=== PATIENT | male | born 1935 | race Caucasian/White ===

== ENCOUNTER 2017-12-07 10:14 | Inpatient (IN) | payer MEDICARE, BC ==
[~2017-12-07] VITALS: Ht 175.3 cm; Wt 74.4 kg
[~2017-12-07 10:14] MED LIST: BISO1TAB39 PO; NOR5T PO
[2017-12-07 10:44] LABS: BASOPHILS % (AUTO) 0.4 % (0-1); EOSINOPHILS # (AUTO) 0.2 X10'3 (0-0.9); EOSINOPHILS % (AUTO) 3.9 % (0-6); HEMATOCRIT 43.1 % (42.0-52.0); HEMOGLOBIN 14.9 g/dl (14.0-17.9); LYMPHOCYTES # (AUTO) 1.5 X10'3 (1.1-4.8); LYMPHOCYTES % (AUTO) 30.9 % (21-51); MEAN CORPUSCULAR HEMOGLOBIN 30.4 PG (27.0-31.0); MEAN CORPUSCULAR HGB CONC 34.6 % (33.0-36.5); MEAN CORPUSCULAR VOLUME 87.8 FL (78-98); MEAN PLATELET VOLUME 8.4 FL (7.4-10.4); MONOCYTES # (AUTO) 0.7 X10'3 (0-0.9); MONOCYTES % (AUTO) 14.6 % (2-12); NEUTROPHILS # (AUTO) 2.5 X10'3 (1.8-7.7); NEUTROPHILS % (AUTO) 50.2 % (42-75); PLATELET COUNT 194 X10'3 (140-440); RED BLOOD COUNT 4.91 X10'6 (4.70-6.10); RED CELL DISTRIBUTION WIDTH 14.1 % (11.5-14.5); WHITE BLOOD COUNT 4.9 X10'3 (4.5-11.0)
[2017-12-07 10:48] LABS: PARTIAL THROMBOPLASTIN TIME 25 SECONDS (22-32); PROTHROMBIN TIME 10.5 SECONDS (9.0-12.0)
[2017-12-07] MEDS ORDERED: NIA500ERT PO (10:48)
[2017-12-07] MEDS ORDERED: DIPH-718 PO (10:48)
[2017-12-07] MEDS ORDERED: UBID100C16 PO (10:48)
[2017-12-07] MEDS ORDERED: HYDR12.5 PO (10:48)
[2017-12-07] MEDS ORDERED: NAPR220T67 PO (10:48)
[2017-12-07] MEDS ORDERED: POTA99TA25 PO (10:48)
[2017-12-07] MEDS ORDERED: MELA3TAB PO (10:52)
[2017-12-07 10:53] LABS: ALANINE AMINOTRANSFERASE 25 U/L (12-78); ALBUMIN 3.7 G/DL (3.4-5.0); ALBUMIN/GLOBULIN RATIO 1.3 (1.1-1.5); ALKALINE PHOSPHATASE 54 IU/L (46-116); ANION GAP 10 (8-16); ASPARTATE AMINO TRANSFERASE 30 U/L (10-37); BILIRUBIN,TOTAL 0.7 MG/DL (0.1-1.0); BLOOD UREA NITROGEN 18 MG/DL (7-18); BUN/CREATININE RATIO 21.2 (5.4-32.0); CALCIUM 8.8 MG/DL (8.5-10.1); CHLORIDE 106 MMOL/L (99-107); CREATININE 0.85 MG/DL (0.60-1.10); GLUCOSE 97 MG/DL (70-104); POTASSIUM 3.8 MMOL/L (3.5-5.1); SODIUM 143 MMOL/L (135-145); TOTAL CARBON DIOXIDE 26.8 MMOL/L (24-32); TOTAL PROTEIN 6.6 G/DL (6.4-8.2); eGFR 87 ML/MIN
[2017-12-07] MEDS ORDERED: aspirin 325mg tablet PO ONE (11:20)
[2017-12-07] MEDS ORDERED: enoxaparin 100mg/ml syringe SUBCUT ONE (13:25)
[2017-12-07] MEDS ORDERED: ondansetron/PF 4mg/2ml inj IV PRN (14:15)
[2017-12-07] MEDS ORDERED: nitroGLYCERIN 0.4mg SUBLingual tab SL PRN ×2 (14:15→17:10)
[2017-12-07] MEDS ORDERED: morphine 2 MG/ML inj. syringe IV PRN ×2 (14:15)
[2017-12-07] MEDS ORDERED: acetaminophen 325mg tablet PO PRN (14:15)
[2017-12-07] MEDS ORDERED: mag hydrox/Alum hydrox/simeth 30ml oral suspension PO PRN (14:15)
[2017-12-07] MEDS ORDERED: magnesium hydroxide 30ml (MOM) UD suspension PO PRN (14:15)
[2017-12-07 15:03] VITALS: BP 171/83
[2017-12-07 17:00] VITALS: BP 181/77
[2017-12-07] MEDS ORDERED: regadenoson 0.4mg/5ml syringe IV ONE (17:10)
[2017-12-07] MEDS ORDERED: CAFFEINE CITRATE 60 MG/3 ML injection vial IV PRN (17:10)
[2017-12-07] MEDS ORDERED: metoprolol tartrate 1mg/ml inj IV PRN (17:10)
[2017-12-07] MEDS ORDERED: Melatonin 3mg tablet PO SCH (21:00)
[2017-12-07 22:00] VITALS: BP 140/67
[2017-12-08] VITALS (10 sets, daily range): BP systolic 141–207; BP diastolic 54–86
[2017-12-08 06:53] LABS: CHOL/HDL RATIO 4.7 (0.00-4.99); CHOLESTEROL 173 MG/DL (0-200); HDL CHOLESTEROL 37 MG/DL (35-60); LDL CHOLESTEROL 120 MG/DL (50-100); TRIGLYCERIDES 105 MG/DL (20-135)
[2017-12-08] MEDS ORDERED: amLODIPine 5mg tablet PO SCH (08:00)
[2017-12-08] MEDS ORDERED: HYDROchlorothiazide 12.5mg capsule PO SCH (08:00)
[2017-12-08] MEDS ORDERED: aspirin 81mg tablet.DR PO SCH (08:00)
[2017-12-08] MEDS ORDERED: non-formulary drug (Ubidecarenone (Coq-10) 200 MG) PO SCH (08:00)
[2017-12-08] MEDS ORDERED: niacin 500mg ER (Niaspan) tablet PO SCH (08:00)
[2017-12-08] MEDS ORDERED: CAFFEINE CITRATE 60 MG/3 ML injection vial IV ONE (09:15)
[2017-12-08] MEDS ORDERED: regadenoson 0.4mg/5ml syringe IV ONE (09:15)
[2017-12-08] MEDS ORDERED: metoprolol tartrate 1mg/ml inj IV ONE (09:27)
[2017-12-08] MEDS ORDERED: ASPI-1071 PO (14:53)
[2017-12-08] MEDS ORDERED: LORA10TA7 PO (14:53)
== END 2017-12-08 15:20 | disposition home or self-care (01) | DRG 313 ==
LOC: ER 10:15 → ED HOLD 14:12 → ORTHO 4S 15:00
PROVIDERS: ADMIT Internal Medicine; ATTEND Family Medicine
PROC: 4A02XM4 Measurement of Cardiac Total Activity, External Approach (ICD-10-PCS; principal; 2017-12-08)
PROC: 3E033HZ Introduction of Radioactive Substance into Peripheral Vein, Percutaneous Approach (ICD-10-PCS; 2017-12-08)
DX: R07.89 Other chest pain (principal); I49.9 Cardiac arrhythmia, unspecified; R74.8 Abnormal levels of other serum enzymes; I10 Essential (primary) hypertension; E78.5 Hyperlipidemia, unspecified; T44.4X5A Adverse effect of predominantly alpha-adrenoreceptor agonists, initial encounter; Z23 Encounter for immunization; Z79.899 Other long term (current) drug therapy; Y92.9 Unspecified place or not applicable
CPT/HCPCS: 36415; 71045; 78452; 80053; 80061; 84443; 84484; 85025; 85610; 85730; 87070; 93005; 93017; 93306; 99285; A9500; J1650; J3490; Q2037

== ENCOUNTER 2018-10-24 05:21 | Observation (INO) | payer MEDICARE, BC ==
[~2018-10-24] VITALS: Ht 175.3 cm; Wt 71.8 kg
[2018-10-24] VITALS (18 sets, daily range): BP systolic 110–141; BP diastolic 51–67
[~2018-10-24 05:21] MED LIST changes: +ASPI-1071 PO; -BISO1TAB39 PO; +HYDR12.5 PO; +LORA10TA7 PO; +MELA3TAB64 PO; +NAPR220T67 PO; +NIA500ERT PO; +POTA99TA25 PO; +UBID100C16 PO
[2018-10-24] MEDS ORDERED: aspirin 81mg tab.chew PO ONE (05:25)
[2018-10-24] MEDS ORDERED: etomidate 2mg/ml inj. IV ONE (05:50)
[2018-10-24 05:56] LABS: BASOPHILS # (AUTO) 0.1 X10'3 (0-0.2); HEMOGLOBIN 15.2 g/dl (14.0-17.9); MONOCYTES # (AUTO) 0.8 X10'3 (0-0.9); PLATELET COUNT 189 X10'3 (140-440)
[2018-10-24 05:57] LABS: EOSINOPHILS # (AUTO) 0.2 X10'3 (0-0.9); EOSINOPHILS % (AUTO) 3.4 % (0-6); HEMATOCRIT 45.8 % (42.0-52.0); LYMPHOCYTES # (AUTO) 3.7 X10'3 (1.1-4.8); LYMPHOCYTES % (AUTO) 52.7 % (21-51); MEAN CORPUSCULAR HEMOGLOBIN 30.3 PG (27.0-31.0); MEAN CORPUSCULAR HGB CONC 33.3 g/dL (33.0-36.5); MEAN PLATELET VOLUME 8.4 FL (7.4-10.4); MONOCYTES % (AUTO) 10.9 % (2-12); NEUTROPHILS # (AUTO) 2.3 X10'3 (1.8-7.7); RED BLOOD COUNT 5.03 X10'6 (4.70-6.10); WHITE BLOOD COUNT 7.1 X10'3 (4.5-11.0)
--- NOTE | 2018-10-24 06:05 | NUR ---
100 JOULES SHOCK GIVEN
[2018-10-24 06:10] LABS: ALANINE AMINOTRANSFERASE 29 U/L (12-78); ALBUMIN 3.9 G/DL (3.4-5.0); ALBUMIN/GLOBULIN RATIO 1.3 (1.1-1.5); ALKALINE PHOSPHATASE 45 IU/L (46-116); ANION GAP 11 (8-16); ASPARTATE AMINO TRANSFERASE 23 U/L (10-37); BLOOD UREA NITROGEN 26 MG/DL (7-18); BUN/CREATININE RATIO 30.2 (5.4-32.0); CALCIUM 9.2 MG/DL (8.5-10.1); CHLORIDE 105 MMOL/L (99-107); CREATININE 0.86 MG/DL (0.60-1.10); GLUCOSE 115 MG/DL (70-104); POTASSIUM 3.7 MMOL/L (3.5-5.1); SODIUM 142 MMOL/L (135-145); TOTAL CARBON DIOXIDE 26.2 MMOL/L (24-32); eGFR 85 ML/MIN
[2018-10-24 06:12] LABS: PARTIAL THROMBOPLASTIN TIME 26 SECONDS (22-32)
[2018-10-24 06:28] LABS: MAGNESIUM 1.9 MG/DL (1.5-2.4)
[2018-10-24 07:14] LABS: PLATELET ESTIMATE NORMAL
[2018-10-24 07:15] LABS: ANISOCYTOSIS 1+; BURR CELLS 1+
[2018-10-24] MEDS ORDERED: aminophylline 250mg/10ml inj. IV PRN (07:15)
[2018-10-24] MEDS ORDERED: nitroGLYCERIN 0.4mg SUBLingual tab SL PRN (07:15)
[2018-10-24] MEDS ORDERED: magnesium hydroxide 30ml (MOM) UD suspension PO PRN (07:15)
[2018-10-24] MEDS ORDERED: morphine 2 MG/ML inj. syringe IV PRN ×2 (07:15)
[2018-10-24] MEDS ORDERED: mag hydrox/Alum hydrox/simeth 30ml oral suspension PO PRN (07:15)
[2018-10-24] MEDS ORDERED: HYDROcodone/acetaminophen 5mg/325mg tablet PO PRN (07:15)
[2018-10-24] MEDS ORDERED: acetaminophen 325mg tablet PO PRN ×2 (07:15)
[2018-10-24] MEDS ORDERED: metoprolol tartrate 1mg/ml inj IV PRN (07:15)
[2018-10-24] MEDS ORDERED: ondansetron/PF 4mg/2ml inj IV PRN (07:15)
[2018-10-24] MEDS ORDERED: regadenoson 0.4mg/5ml syringe IV ONE (07:15)
[2018-10-24] MEDS ORDERED: CHOL20002 PO (07:18)
[2018-10-24] MEDS ORDERED: LISI10TA4 PO (07:18)
[2018-10-24] MEDS ORDERED: MULT-687 PO (07:18)
[2018-10-24] MEDS ORDERED: LORA-660 PO (07:22)
[2018-10-24] MEDS ORDERED: ASPI-1053 PO (07:22)
[2018-10-24] MEDS ORDERED: apixaban 5mg tablet PO SCH (08:00)
[2018-10-24] MEDS ORDERED: naproxen sodium 220mg tablet PO SCH (10:50)
--- NOTE | 2018-10-24 12:57 | NUR ---
PAGER ID: [phone] MESSAGE: [phone] Gregorio Shelton can we take him off npo? JUAN ANTONIO Ying Ext [phone]
[2018-10-24] MEDS ORDERED: midazolam 2 mg/2 ml injection ONE (14:13)
[2018-10-24] MEDS ORDERED: fentaNYL/PF 50MCG/1 ML 2ML syringe ONE (14:13)
[2018-10-24] MEDS ORDERED: nitroGLYCERIN-Tridil 50MG/D5W 250 ML IV ONE (14:13)
[2018-10-24] MEDS ORDERED: LIDOcaine 1% (10mg/ml)w/preservative injection 20ml MDV ONE (14:14)
[2018-10-24] MEDS ORDERED: iohexol 350 MG/1 ML 200ml bottle ONE (14:14)
[2018-10-24] MEDS ORDERED: heparin 1,000unit/ml 10ml vial 10 ML ONE (14:14)
[2018-10-24] MEDS ORDERED: iohexol 350 MG/ML 50ML vial IV ONE (14:14)
[2018-10-24] MEDS: normal saline 1000ml 1,000 ML IV SCH ×2 (14:43→18:06)
[2018-10-24] MEDS ORDERED: verapamil 2.5 mg/ml inj IV ONE (14:47)
[2018-10-24] MEDS ORDERED: heparin 25,000 UNIT/250ml bag 250 ML IV ONE (15:06)
[2018-10-24] MEDS ORDERED: iohexol 350MG/ML 100ml bottle IV ONE (15:25)
[2018-10-24] MEDS ORDERED: ticagrelor 90mg tablet ONE (15:39)
[2018-10-24] MEDS ORDERED: heparin 25,000 UNIT/250ml bag 250 ML IV SCH (16:20)
[2018-10-24] MEDS ORDERED: heparin 10,000 units/1 ML INJ IV PRN (16:20)
[2018-10-24] MEDS ORDERED: heparin 10,000 units/1 ML INJ IV ONE (16:20)
[2018-10-24] MEDS ORDERED: ticagrelor 90mg tablet PO ONE (16:30)
[2018-10-24] MEDS ORDERED: OXAZEpam 15mg capsule PO PRN (16:30)
[2018-10-24] MEDS ORDERED: HYDROcodone/acetaminophen 10/325mg tab PO PRN ×2 (16:30)
[2018-10-24] MEDS ORDERED: cyclobenzaprine 10mg tablet PO PRN (16:30)
[2018-10-24] MEDS ORDERED: proCHLORperazine 10 MG/2 ml inj IV PRN (16:30)
--- NOTE | 2018-10-24 17:23 | NUR ---
PAGER ID: [phone] MESSAGE: [phone] Gregorio Branch heart rate slightly bradycardic in the low 50's. Asymptomatic though. JUAN ANTONIO Ying Ext [phone]
--- NOTE | 2018-10-24 18:22 | NUR ---
Problems reprioritized. Patient report given, questions answered & plan of care reviewed with Sirena.
[2018-10-24] MEDS: ticagrelor 90mg tablet PO SCH (20:00)
[2018-10-24] MEDS: docusate sod 100mg capsule PO SCH (20:35)
--- NOTE | 2018-10-24 20:46 | NUR ---
Patient continues to bleed from cardiac catheterization site. Called [facility] answering service and left a message to see if he would like me to give him his Brilinta and what he would like me to do with the pressure dressing. I have only taken three mLs out of the pressure dressing, and the site continues to bleed. I put 2 mLs of air back into the pressure dressing with Alma Charge nurse.
--- NOTE | 2018-10-24 20:50 | NUR ---
I spoke with Dr. Mayen just now, he would like to hold the Brdelmi tonight due to the patient still bleeding at his catheterization site located on his right radial artery. He would also like the dayshift nurse to CALL HIM BEFORE GIVING HIM ANY BLOOD THINNERS INCLUDING BRILINTA, LOVENOX, ELIQUIS ECT. NO BLOOD THINNERS BEFORE CALLING SAGRARIO IN THE MORNING ON 10/25
[2018-10-24] MEDS ORDERED: Melatonin 3mg tablet PO SCH (21:00)
--- NOTE | 2018-10-24 23:02 | NUR ---
Hematoma from bleeding of catheterization site. Site is marked, ice applied, pressure dressing in place with [address] Mayen is aware and is ok with the pressure dressing to remain on the patients radial artery as long as pulses are in tact, hand has good color and is warm. Will continue to monitor and release air when appropriate.
[2018-10-25 03:00] VITALS: BP 145/61
[2018-10-25 06:00] VITALS: BP 145/57
[2018-10-25 06:22] LABS: BASOPHILS % (AUTO) 0.8 % (0-1); EOSINOPHILS # (AUTO) 0.1 X10'3 (0-0.9); EOSINOPHILS % (AUTO) 2.1 % (0-6); HEMATOCRIT 36.4 % (42.0-52.0); HEMOGLOBIN 12.5 g/dl (14.0-17.9); LYMPHOCYTES % (AUTO) 23.1 % (21-51); MEAN CORPUSCULAR HEMOGLOBIN 31.2 PG (27.0-31.0); MEAN CORPUSCULAR HGB CONC 34.3 g/dL (33.0-36.5); MEAN CORPUSCULAR VOLUME 90.8 FL (78-98); MEAN PLATELET VOLUME 8.5 FL (7.4-10.4); MONOCYTES # (AUTO) 0.5 X10'3 (0-0.9); MONOCYTES % (AUTO) 11.9 % (2-12); NEUTROPHILS # (AUTO) 2.6 X10'3 (1.8-7.7); NEUTROPHILS % (AUTO) 62.1 % (42-75); PLATELET COUNT 149 X10'3 (140-440); RED BLOOD COUNT 4.01 X10'6 (4.70-6.10); RED CELL DISTRIBUTION WIDTH 13.8 % (11.5-14.5); WHITE BLOOD COUNT 4.3 X10'3 (4.5-11.0)
[2018-10-25 06:32] LABS: ALBUMIN 2.8 G/DL (3.4-5.0); ANION GAP 6 (8-16); BLOOD UREA NITROGEN 16 MG/DL (7-18); BUN/CREATININE RATIO 21.9 (5.4-32.0); CALCIUM 7.7 MG/DL (8.5-10.1); CHLORIDE 111 MMOL/L (99-107); CHOL/HDL RATIO 3.6 (0.00-4.99); CHOLESTEROL 142 MG/DL (0-200); CREATININE 0.73 MG/DL (0.60-1.10); GLUCOSE 88 MG/DL (70-104); HDL CHOLESTEROL 39 MG/DL (35-60); LDL CHOLESTEROL 94 MG/DL (50-100); SODIUM 143 MMOL/L (135-145); TOTAL CARBON DIOXIDE 26.3 MMOL/L (24-32); TRIGLYCERIDES 68 MG/DL (20-135); eGFR > 90 ML/MIN
--- NOTE | 2018-10-25 06:39 | NUR ---
Problems reprioritized. Patient report given, questions answered & plan of care reviewed with JUAN ANTONIO Madera.
--- NOTE | 2018-10-25 07:13 | NUR ---
Patient in room PCU 3009. I have received report from JUAN ANTONIO Pack and had the opportunity to ask questions and assume patient care.
[2018-10-25] MEDS: docusate sod 100mg capsule PO SCH (07:57)
[2018-10-25] MEDS ORDERED: aspirin 81mg tab.chew PO SCH (08:00)
[2018-10-25] MEDS ORDERED: MULTIVITAMIN PO SCH (08:00)
[2018-10-25] MEDS ORDERED: multivitamins, therapeutics tablet PO SCH (08:00)
[2018-10-25] MEDS ORDERED: CHOLECALCIFEROL PO SCH (08:00)
[2018-10-25] MEDS ORDERED: LORATADINE 10 MG PO SCH (08:00)
[2018-10-25] MEDS ORDERED: POTASSIUM GLUCONATE PO SCH (08:00)
[2018-10-25] MEDS ORDERED: lisinopril 10 MG tablet PO SCH (08:00)
[2018-10-25] MEDS: ticagrelor 90mg tablet PO SCH (08:00)
[2018-10-25] MEDS ORDERED: potassium chloride 8mEq ER tablet PO SCH (08:00)
[2018-10-25] MEDS ORDERED: loratadine 10mg tablet PO SCH (08:00)
[2018-10-25] MEDS ORDERED: vitamin D (cholecalciferol) 1,000 unit tablet PO SCH (08:00)
[2018-10-25] MEDS ORDERED: niacin 500mg ER (Niaspan) tablet PO SCH (08:00)
[2018-10-25] MEDS ORDERED: HYDROchlorothiazide 12.5mg capsule PO SCH (08:00)
[2018-10-25] MEDS ORDERED: atorvastatin 20mg tablet PO SCH (08:00)
[2018-10-25] MEDS ORDERED: non-formulary drug (Ubidecarenone (Coq-10) 200 MG) PO SCH (08:00)
[2018-10-25 08:03] VITALS: BP 153/68
--- NOTE | 2018-10-25 08:04 | NUR ---
attempted to aspirate air from right radial artery approach, no air aspirated, none was inflated. pt has good radial pulses. bruising marked.
[2018-10-25] MEDS ORDERED: TICA90TA PO (08:43)
[2018-10-25] MEDS ORDERED: ATOR20TA66 PO (08:43)
[2018-10-25] MEDS ORDERED: naproxen sodium 220mg tablet PO PRN (08:46)
[2018-10-25 11:00] VITALS: BP 174/73
[2018-10-25] MEDS ORDERED: APIX5TAB3 PO (12:19)
[2018-10-25] MEDS ORDERED: SOTA80TA PO (12:20)
[2018-10-25] MEDS ORDERED: sotalol 80mg tablet PO SCH (12:25)
[2018-10-25 14:22] VITALS: BP 137/71
--- NOTE | 2018-10-25 15:15 | NUR ---
pt discharged in stable condition. all belongings sent with pt. piv and tele dc'd. canula intact. discharge instructions given to pt and family. new meds called to [facility]. pt taken to private vehicle in wheelchair.
== END 2018-10-25 15:13 | disposition home or self-care (01) ==
LOC: ER 05:23 → PCU 3S 10:13
PROVIDERS: ADMIT Internal Medicine; ATTEND Internal Medicine
DX: S26.90XA Unspecified injury of heart, unspecified with or without hemopericardium, initial encounter (principal); I25.10 Atherosclerotic heart disease of native coronary artery without angina pectoris; I48.0 Paroxysmal atrial fibrillation; I10 Essential (primary) hypertension; E78.5 Hyperlipidemia, unspecified; Z79.82 Long term (current) use of aspirin; Y93.89 Activity, other specified; Y92.89 Other specified places as the place of occurrence of the external cause
CPT/HCPCS: 36415; 71045; 78452; 80048; 80053; 80061; 83735; 83880; 84443; 84484; 85025; 85347; 85610; 85730; 87081; 93005; 93017; 93306; 93458; 99291; A9500; C1725; C1769; C1874; C1894; C9600; C9601; G0378; J1644; J2001; J2250; J2785; J3010; J7030; Q9967; 99152; 99153; 99284; A4620; A6258; J3490

== ENCOUNTER 2018-10-26 01:01 | Emergency (ER) | payer MEDICARE, BC ==
[~2018-10-26] VITALS: Ht 175.3 cm; Wt 68.2 kg
[~2018-10-26 01:01] MED LIST changes: +APIX5TAB3 PO; -ASPI-1071 PO; +ATOR20TA66 PO; +CHOL20002 PO; +LISI10TA4 PO; +LORA-660 PO; -LORA10TA7 PO; +MULT-687 PO; -NOR5T PO; +SOTA80TA PO; +TICA90TA PO
--- NOTE | 2018-10-26 01:12 | NUR ---
TRIED TO CONTACT PTS SON PER REQUEST. LEFT MESSAGE TO CONTACT US.
[2018-10-26 01:39] LABS: ALANINE AMINOTRANSFERASE 28 U/L (12-78); ALBUMIN 3.3 G/DL (3.4-5.0); ALBUMIN/GLOBULIN RATIO 1.2 (1.1-1.5); ALKALINE PHOSPHATASE 43 IU/L (46-116); ANION GAP 10 (8-16); ASPARTATE AMINO TRANSFERASE 30 U/L (10-37); BILIRUBIN,TOTAL 0.6 MG/DL (0.1-1.0); BLOOD UREA NITROGEN 20 MG/DL (7-18); CALCIUM 8.4 MG/DL (8.5-10.1); CHLORIDE 108 MMOL/L (99-107); GLUCOSE 98 MG/DL (70-104); POTASSIUM 3.8 MMOL/L (3.5-5.1); SODIUM 142 MMOL/L (135-145); TOTAL PROTEIN 6.1 G/DL (6.4-8.2); eGFR > 90 ML/MIN
[2018-10-26 01:44] LABS: PARTIAL THROMBOPLASTIN TIME 30 SECONDS (22-32)
[2018-10-26 01:49] LABS: BASOPHILS % (AUTO) 0.8 % (0-1); EOSINOPHILS # (AUTO) 0.2 X10'3 (0-0.9); EOSINOPHILS % (AUTO) 3.3 % (0-6); HEMATOCRIT 40.6 % (42.0-52.0); LYMPHOCYTES # (AUTO) 1.4 X10'3 (1.1-4.8); LYMPHOCYTES % (AUTO) 22.9 % (21-51); MEAN CORPUSCULAR HEMOGLOBIN 30.7 PG (27.0-31.0); MEAN CORPUSCULAR HGB CONC 34.4 g/dL (33.0-36.5); MEAN CORPUSCULAR VOLUME 89.1 FL (78-98); MEAN PLATELET VOLUME 8.5 FL (7.4-10.4); MONOCYTES # (AUTO) 0.8 X10'3 (0-0.9); MONOCYTES % (AUTO) 13.1 % (2-12); NEUTROPHILS # (AUTO) 3.6 X10'3 (1.8-7.7); NEUTROPHILS % (AUTO) 59.9 % (42-75); PLATELET COUNT 172 X10'3 (140-440); RED BLOOD COUNT 4.55 X10'6 (4.70-6.10); RED CELL DISTRIBUTION WIDTH 13.5 % (11.5-14.5)
[2018-10-26] MEDS ORDERED: iohexol 350MG/ML 100ml bottle IV ONE (04:32)
[2018-10-26] MEDS ORDERED: iohexol 350 MG/ML 50ML vial IV ONE (05:09)
[2018-10-26 06:08] VITALS: BP 152/75
== END 2018-10-26 06:28 | disposition home or self-care (01) ==
LOC: ER 01:02
DX: I25.10 Atherosclerotic heart disease of native coronary artery without angina pectoris (principal); R06.02 Shortness of breath; I10 Essential (primary) hypertension; Z95.9 Presence of cardiac and vascular implant and graft, unspecified; Z79.899 Other long term (current) drug therapy; Z79.82 Long term (current) use of aspirin
CPT/HCPCS: 36415; 71045; 71275; 80053; 84484; 85025; 85610; 85730; 93005; 99284; Q9967

== ENCOUNTER 2018-11-01 08:09 | Emergency (ER) | payer MEDICARE, BC ==
[~2018-11-01] VITALS: Ht 175.3 cm; Wt 68.2 kg
[2018-11-01 08:40] LABS: HEMOGLOBIN 14.8 g/dl (14.0-17.9); MEAN PLATELET VOLUME 8.1 FL (7.4-10.4)
[2018-11-01 08:42] LABS: BASOPHILS % (AUTO) 0.7 % (0-1); EOSINOPHILS # (AUTO) 0.2 X10'3 (0-0.9); EOSINOPHILS % (AUTO) 2.7 % (0-6); HEMATOCRIT 43.5 % (42.0-52.0); LYMPHOCYTES # (AUTO) 1.3 X10'3 (1.1-4.8); LYMPHOCYTES % (AUTO) 21.4 % (21-51); MEAN CORPUSCULAR HEMOGLOBIN 30.4 PG (27.0-31.0); MEAN CORPUSCULAR HGB CONC 33.9 g/dL (33.0-36.5); MEAN CORPUSCULAR VOLUME 89.7 FL (78-98); MONOCYTES # (AUTO) 0.6 X10'3 (0-0.9); MONOCYTES % (AUTO) 10.1 % (2-12); NEUTROPHILS # (AUTO) 4.1 X10'3 (1.8-7.7); NEUTROPHILS % (AUTO) 65.1 % (42-75); PLATELET COUNT 204 X10'3 (140-440); RED BLOOD COUNT 4.85 X10'6 (4.70-6.10); WHITE BLOOD COUNT 6.3 X10'3 (4.5-11.0)
[2018-11-01 08:55] LABS: PARTIAL THROMBOPLASTIN TIME 29 SECONDS (22-32)
[2018-11-01 08:56] LABS: ALANINE AMINOTRANSFERASE 30 U/L (12-78); ALBUMIN 3.5 G/DL (3.4-5.0); ALBUMIN/GLOBULIN RATIO 1.1 (1.1-1.5); ALKALINE PHOSPHATASE 52 IU/L (46-116); ANION GAP 9 (8-16); ASPARTATE AMINO TRANSFERASE 24 U/L (10-37); BILIRUBIN,TOTAL 0.9 MG/DL (0.1-1.0); BLOOD UREA NITROGEN 15 MG/DL (7-18); BUN/CREATININE RATIO 16.1 (5.4-32.0); CALCIUM 8.6 MG/DL (8.5-10.1); CHLORIDE 108 MMOL/L (99-107); CREATININE 0.93 MG/DL (0.60-1.10); GLUCOSE 99 MG/DL (70-104); POTASSIUM 3.9 MMOL/L (3.5-5.1); SODIUM 143 MMOL/L (135-145); TOTAL CARBON DIOXIDE 26.2 MMOL/L (24-32); TOTAL PROTEIN 6.7 G/DL (6.4-8.2); eGFR 78 ML/MIN
[2018-11-01] MEDS ORDERED: ATOR40TA PO (09:02)
[2018-11-01] MEDS ORDERED: lisinopril 10 MG tablet PO ONE (09:10)
[2018-11-01] MEDS ORDERED: HYDROchlorothiazide 25mg tablet PO ONE (09:10)
[2018-11-01] MEDS ORDERED: sotalol 80mg tablet PO SCH (09:10)
[2018-11-01] MEDS ORDERED: ticagrelor 90mg tablet PO ONE (09:15)
[2018-11-01] MEDS ORDERED: HYDROchlorothiazide 12.5mg capsule PO ONE (09:15)
[2018-11-01] MEDS ORDERED: apixaban 5mg tablet PO ONE (09:15)
[2018-11-01 09:36] VITALS: BP 175/88
[2018-11-01] MEDS ORDERED: ticagrelor 90mg tablet PO SCH (20:00)
[2018-11-01] MEDS ORDERED: apixaban 5mg tablet PO SCH (20:00)
== END 2018-11-01 09:37 | disposition home or self-care (01) ==
LOC: ER 08:10
DX: R06.02 Shortness of breath (principal); R06.00 Dyspnea, unspecified; I25.10 Atherosclerotic heart disease of native coronary artery without angina pectoris; I10 Essential (primary) hypertension; Z98.61 Coronary angioplasty status; Z79.899 Other long term (current) drug therapy
CPT/HCPCS: 36415; 71045; 80053; 84484; 85025; 85610; 85730; 93005; 99284

== ENCOUNTER 2019-04-04 01:52 | Observation (INO) | payer MEDICARE, BC ==
[~2019-04-04] VITALS: Ht 175.3 cm; Wt 70.5 kg
[~2019-04-04 01:52] MED LIST changes: -ATOR20TA66 PO; +ATOR40TA PO
[2019-04-04 02:19] LABS: BASOPHILS % (AUTO) 0.4 % (0-1); EOSINOPHILS # (AUTO) 0.5 X10'3 (0-0.9); EOSINOPHILS % (AUTO) 9.9 % (0-6); HEMATOCRIT 42.3 % (42.0-52.0); HEMOGLOBIN 14.5 g/dl (14.0-17.9); LYMPHOCYTES # (AUTO) 1.9 X10'3 (1.1-4.8); LYMPHOCYTES % (AUTO) 35.6 % (21-51); MEAN CORPUSCULAR HEMOGLOBIN 30.4 PG (27.0-31.0); MEAN CORPUSCULAR HGB CONC 34.3 g/dL (33.0-36.5); MEAN CORPUSCULAR VOLUME 88.9 FL (78-98); MEAN PLATELET VOLUME 8.5 FL (7.4-10.4); MONOCYTES # (AUTO) 0.7 X10'3 (0-0.9); MONOCYTES % (AUTO) 13.3 % (2-12); NEUTROPHILS # (AUTO) 2.2 X10'3 (1.8-7.7); NEUTROPHILS % (AUTO) 40.8 % (42-75); PLATELET COUNT 179 X10'3 (140-440); RED BLOOD COUNT 4.76 X10'6 (4.70-6.10); RED CELL DISTRIBUTION WIDTH 13.9 % (11.5-14.5); WHITE BLOOD COUNT 5.3 X10'3 (4.5-11.0)
[2019-04-04] MEDS ORDERED: nitroGLYCERIN 0.4mg SUBLingual tab SL PRN (02:30)
[2019-04-04 02:31] LABS: PARTIAL THROMBOPLASTIN TIME 29 SECONDS (22-32)
[2019-04-04 02:37] LABS: ALANINE AMINOTRANSFERASE 39 U/L (12-78); ALBUMIN 3.7 G/DL (3.4-5.0); ALBUMIN/GLOBULIN RATIO 1.3 (1.1-1.5); ALKALINE PHOSPHATASE 59 IU/L (46-116); ANION GAP 6 (8-16); ASPARTATE AMINO TRANSFERASE 31 U/L (10-37); BILIRUBIN,TOTAL 0.6 MG/DL (0.1-1.0); BLOOD UREA NITROGEN 18 MG/DL (7-18); BUN/CREATININE RATIO 20.9 (5.4-32.0); CALCIUM 8.9 MG/DL (8.5-10.1); CHLORIDE 107 MMOL/L (99-107); CREATININE 0.86 MG/DL (0.60-1.10); GLUCOSE 91 MG/DL (70-104); POTASSIUM 4.1 MMOL/L (3.5-5.1); SODIUM 142 MMOL/L (135-145); TOTAL CARBON DIOXIDE 29.1 MMOL/L (24-32); TOTAL PROTEIN 6.5 G/DL (6.4-8.2); eGFR 85 ML/MIN
[2019-04-04] MEDS ORDERED: aspirin 81mg tab.chew PO ONE (03:35)
--- NOTE | 2019-04-04 03:38 | NUR ---
Pt resting comfortably. Denies SOB, chest pain or pressure at this time.
--- NOTE | 2019-04-04 03:57 | NUR ---
PT STATED HE WAS TOLD BY DR ZABALA NOT TO TAKE ASPIRIN. PT REFUSES ASPIRIN AT THIS TIME.
[2019-04-04] MEDS ORDERED: SOTA80TA73 PO (06:40)
[2019-04-04] MEDS ORDERED: MELA3TAB64 PO (06:40)
[2019-04-04] MEDS ORDERED: ondansetron/PF 4mg/2ml inj IV PRN (08:00)
[2019-04-04] MEDS ORDERED: morphine 2 MG/ML inj. syringe IV PRN ×2 (08:00)
[2019-04-04] MEDS ORDERED: mag hydrox/Alum hydrox/simeth 30ml oral suspension PO PRN (08:00)
[2019-04-04] MEDS ORDERED: acetaminophen 325mg tablet PO PRN (08:00)
[2019-04-04] MEDS ORDERED: magnesium hydroxide 30ml (MOM) UD suspension PO PRN (08:00)
[2019-04-04] MEDS: hydrALAZINE 20mg/ml inj. IV PRN (10:50)
[2019-04-04] MEDS: normal saline 1000ml 1,000 ML IV SCH ×3 (10:50→20:45)
--- NOTE | 2019-04-04 12:23 | NUR ---
promotional table spacer PAGER ID: [phone] MESSAGE: Keshawn [phone], Jose Carlos. Pt has BP of 186/80 after having PRN hydralazine 1 hr ago. Pt would also like something for a headache. Megan [phone]
[2019-04-04] MEDS: enalaprilat dihydrate 2.5mg/2ml vial IV PRN ×2 (12:55→23:04)
--- NOTE | 2019-04-04 13:33 | NUR ---
PAGER ID: [phone] MESSAGE: [phone], Jose Carlos. Pt's son Kilo would like to talk with you if possible as he is leaving the country tomorrow. Megan [phone]
--- NOTE | 2019-04-04 13:33 | NUR ---
Spoke with pt's family son Kilo who would like to speak with the MD regarding the patient's POC as he will be leaving the country tomorrow. Kevin MD, will continue to monitor. Patient received prn BP medication, and DEGROOT has resolved, will re-check BP in an hour.
--- NOTE | 2019-04-04 14:03 | NUR ---
PAGER ID: [phone] MESSAGE: Keshawn [phone] Carlos. If you have time Pt's son Kilo would like a quick update from you please. Thank you, Megan [phone]
[2019-04-04] MEDS ORDERED: Melatonin 3mg tablet PO PRN (14:30)
[2019-04-04 15:00] VITALS: BP 139/62
--- NOTE | 2019-04-04 16:27 | NUR ---
promotional table spacer PAGER ID: [phone] MESSAGE: Keshawn [phone], Jose Carlos. Can I put in an order for Tylenol for pain? Thanks, Megan [phone]
[2019-04-04] MEDS: acetaminophen 325mg tablet PO PRN ×2 (16:41→23:14)
--- NOTE | 2019-04-04 18:22 | NUR ---
Problems reprioritized. Patient report given, questions answered & plan of care reviewed with Samuel ROMANO.
[2019-04-04 18:30] VITALS: BP 144/66
--- NOTE | 2019-04-04 18:48 | NUR ---
Page Sent promotional table spacer PAGER ID: [phone] MESSAGE: Gregorio Branch [phone] here for chest pain would like something for nasal decongestion. normally uses a saline solution at home. Thank you, Reba [phone]
--- NOTE | 2019-04-04 18:48 | NUR ---
Patient in room PCU 3009. I have received report from Megan Storm RN and had the opportunity to ask questions and assume patient care.
[2019-04-04] MEDS: apixaban 5mg tablet PO SCH (19:42)
[2019-04-04] MEDS: ticagrelor 90mg tablet PO SCH (19:42)
[2019-04-04] MEDS: sotalol 80mg tablet PO SCH (19:43)
[2019-04-04] MEDS: salt irrigation nasal spray 45 ML SPRAY NS PRN ×2 (19:51→23:02)
[2019-04-04 22:30] VITALS: BP 162/83
[2019-04-05] VITALS: BP 135/53
[2019-04-05 02:30] VITALS: BP 136/63
[2019-04-05 05:26] LABS: ALBUMIN 2.8 G/DL (3.4-5.0); ANION GAP 4 (8-16); BLOOD UREA NITROGEN 18 MG/DL (7-18); BUN/CREATININE RATIO 24.3 (5.4-32.0); CALCIUM 8.1 MG/DL (8.5-10.1); CHLORIDE 112 MMOL/L (99-107); CREATININE 0.74 MG/DL (0.60-1.10); GLUCOSE 88 MG/DL (70-104); POTASSIUM 3.9 MMOL/L (3.5-5.1); SODIUM 144 MMOL/L (135-145); TOTAL CARBON DIOXIDE 28.2 MMOL/L (24-32); eGFR > 90 ML/MIN
[2019-04-05 05:33] LABS: BASOPHILS # (AUTO) 0.1 X10'3 (0-0.2); BASOPHILS % (AUTO) 1.1 % (0-1); EOSINOPHILS # (AUTO) 0.5 X10'3 (0-0.9); HEMATOCRIT 35.8 % (42.0-52.0); HEMOGLOBIN 12.4 g/dl (14.0-17.9); LYMPHOCYTES # (AUTO) 1.3 X10'3 (1.1-4.8); LYMPHOCYTES % (AUTO) 28.6 % (21-51); MEAN CORPUSCULAR HEMOGLOBIN 30.7 PG (27.0-31.0); MEAN CORPUSCULAR HGB CONC 34.7 g/dL (33.0-36.5); MEAN CORPUSCULAR VOLUME 88.6 FL (78-98); MEAN PLATELET VOLUME 8.6 FL (7.4-10.4); MONOCYTES # (AUTO) 0.6 X10'3 (0-0.9); NEUTROPHILS # (AUTO) 2.2 X10'3 (1.8-7.7); NEUTROPHILS % (AUTO) 48.3 % (42-75); PLATELET COUNT 146 X10'3 (140-440); RED BLOOD COUNT 4.05 X10'6 (4.70-6.10); RED CELL DISTRIBUTION WIDTH 13.9 % (11.5-14.5); WHITE BLOOD COUNT 4.6 X10'3 (4.5-11.0)
[2019-04-05 06:00] VITALS: BP 160/73
--- NOTE | 2019-04-05 06:00 | NUR ---
Patient in room PCU 3009. I have received report from Samuel ROMANO and had the opportunity to ask questions and assume patient care. Patient is awake and oriented at this time. Unlabored respirations, offers no complaints, will continue to monitor.
--- NOTE | 2019-04-05 06:14 | NUR ---
Problems reprioritized. Patient report given, questions answered & plan of care reviewed with Megan Storm RN.
[2019-04-05] MEDS ORDERED: HYDROchlorothiazide 12.5mg capsule PO SCH (08:00)
[2019-04-05] MEDS ORDERED: niacin 500mg ER (Niaspan) tablet PO SCH (08:00)
[2019-04-05] MEDS ORDERED: POTASSIUM GLUCONATE PO SCH (08:00)
[2019-04-05] MEDS ORDERED: multivitamins, therapeutics tablet PO SCH (08:00)
[2019-04-05] MEDS ORDERED: non-formulary drug (Ubidecarenone (Coq-10) 200 MG) PO SCH (08:00)
[2019-04-05] MEDS ORDERED: vitamin D (cholecalciferol) 1,000 unit tablet PO SCH (08:00)
[2019-04-05] MEDS ORDERED: lisinopril 10 MG tablet PO SCH (08:00)
[2019-04-05] MEDS ORDERED: atorvastatin 20mg tablet PO SCH (08:00)
[2019-04-05] MEDS ORDERED: HYDROchlorothiazide 12.5mg capsule PO ONE (08:05)
--- NOTE | 2019-04-05 08:17 | NUR ---
Spoke with Dionne Brunner GAS OPERATIONS SUPERINTENDENT, instructed to hold the lisinopril ordered for this am as she would be adjusting his dose and time given.
[2019-04-05] MEDS: sotalol 80mg tablet PO SCH (08:18)
[2019-04-05] MEDS: apixaban 5mg tablet PO SCH (08:19)
[2019-04-05] MEDS: ticagrelor 90mg tablet PO SCH (08:19)
[2019-04-05 11:00] VITALS: BP_SYST 187; BP_SYST 188; BP_DIAS 73; BP_DIAS 75
[2019-04-05] MEDS: enalaprilat dihydrate 2.5mg/2ml vial IV PRN (11:01)
--- NOTE | 2019-04-05 12:13 | NUR ---
Paged re : Pt's BP PAGER ID: [phone] MESSAGE: [phone] A : Jose Carlos G : STEPHANIA : Pt's BP is 188/80 after PRN Vasotec. Will give PRN Hydralazine and will inform you of the result. Thanks! Megan/Vale x [phone]
[2019-04-05] MEDS: hydrALAZINE 20mg/ml inj. IV PRN (12:19)
--- NOTE | 2019-04-05 12:48 | NUR ---
Rm [phone], Jose Carlos. Pt needs darted if you can please. Thank you.
--- NOTE | 2019-04-05 13:54 | NUR ---
Paged / Abdifatah. PAGER ID: [phone] MESSAGE: [phone] A Nanda Branch : Pt's BP = 162/68, 80 bpm after 1 hour of receiving Hydralazine 10 mg IV (PRN). Pt denied headache and palpitation, no SOB noted. Pt stated he's fine. Please advice. Thanks! . Megan/Vale
[2019-04-05] MEDS: normal saline 1000ml 1,000 ML IV SCH (13:56)
[2019-04-05 15:00] VITALS: BP 127/53
[2019-04-05 15:18] VITALS: BP 139/69
--- NOTE | 2019-04-05 15:23 | NUR ---
Paged Dr. Gardiner. PAGER ID: [phone] MESSAGE: [phone] A Nanda Branch : Update on pt's BP : 139/69; pt asymptomatic... Megan/Vale x [phone]
[2019-04-05] MEDS ORDERED: HCTZ25T PO (15:35)
[2019-04-05] MEDS ORDERED: LISI-600 PO (15:35)
--- NOTE | 2019-04-05 16:48 | NUR ---
Pt is stable to be discharged per MD; Education and discharged instructions provided to patient - pt verbalized understanding; discharge packet and home meds stored in pharmacy handed to pt. IV access discontinued; tele monitor removed and returned to [employer]. Staff accompanied pt off the unit; accompanied the pt.
--- NOTE | 2019-04-05 17:50 | NUR ---
Patient discharged home with at 1648. Patient reviewed discharged packet before signing, all belongings sent with patient. PIV was removed with cannula intact, telemetry monitoring was discontinued and Rx was given to patient to have filled tomorrow at his pharmacy. Patient was wheeled down by staff and alert and oriented for discharge. Patient left via private vehicle.
[2019-04-05] MEDS ORDERED: lisinopril 20mg tablet PO SCH (21:00)
[2019-04-06] MEDS ORDERED: HYDROchlorothiazide 25mg tablet PO SCH (08:00)
--- NOTE | 2019-04-07 10:10 | NUR ---
Case Management DC follow up: LM/VM asking rtn call if questions/concerns, post DC status
== END 2019-04-05 16:48 | disposition home or self-care (01) ==
LOC: ER 01:53 → ED HOLD 07:56 → PCU 3S 09:50
PROVIDERS: ADMIT Family Medicine; ATTEND Family Medicine
DX: R07.89 Other chest pain (principal); I25.10 Atherosclerotic heart disease of native coronary artery without angina pectoris; I48.91 Unspecified atrial fibrillation; I10 Essential (primary) hypertension; E78.5 Hyperlipidemia, unspecified; Z98.61 Coronary angioplasty status; Z79.01 Long term (current) use of anticoagulants; Z79.899 Other long term (current) drug therapy
CPT/HCPCS: 36415; 71045; 80048; 80053; 84484; 85025; 85610; 85730; 87081; 93005; 96374; 96375; 96376; 99284; G0378; J0360; J7030

== ENCOUNTER 2019-04-08 18:44 | Emergency (ER) | payer MEDICARE, BC ==
[~2019-04-08] VITALS: Ht 175.3 cm; Wt 71.9 kg
[~2019-04-08 18:44] MED LIST changes: +HCTZ25T PO; -HYDR12.5 PO; +LISI-600 PO; -LISI10TA4 PO; -LORA-660 PO; -NAPR220T67 PO; -SOTA80TA PO; +SOTA80TA73 PO
[2019-04-08 19:33] LABS: BASOPHILS % (AUTO) 0.9 % (0-1); EOSINOPHILS # (AUTO) 0.5 X10'3 (0-0.9); EOSINOPHILS % (AUTO) 9.3 % (0-6); HEMATOCRIT 41.2 % (42.0-52.0); LYMPHOCYTES # (AUTO) 1.5 X10'3 (1.1-4.8); LYMPHOCYTES % (AUTO) 26.3 % (21-51); MEAN CORPUSCULAR HEMOGLOBIN 30.5 PG (27.0-31.0); MEAN CORPUSCULAR VOLUME 89.7 FL (78-98); MEAN PLATELET VOLUME 8.8 FL (7.4-10.4); MONOCYTES # (AUTO) 0.6 X10'3 (0-0.9); MONOCYTES % (AUTO) 9.9 % (2-12); NEUTROPHILS % (AUTO) 53.6 % (42-75); PLATELET COUNT 182 X10'3 (140-440); RED BLOOD COUNT 4.59 X10'6 (4.70-6.10); WHITE BLOOD COUNT 5.6 X10'3 (4.5-11.0)
[2019-04-08 19:36] LABS: ALANINE AMINOTRANSFERASE 37 U/L (12-78); ALBUMIN 3.5 G/DL (3.4-5.0); ALBUMIN/GLOBULIN RATIO 1.2 (1.1-1.5); ALKALINE PHOSPHATASE 62 IU/L (46-116); ANION GAP 5 (8-16); ASPARTATE AMINO TRANSFERASE 29 U/L (10-37); BILIRUBIN,TOTAL 0.4 MG/DL (0.1-1.0); BLOOD UREA NITROGEN 17 MG/DL (7-18); BUN/CREATININE RATIO 18.5 (5.4-32.0); CALCIUM 8.9 MG/DL (8.5-10.1); CHLORIDE 107 MMOL/L (99-107); CREATININE 0.92 MG/DL (0.60-1.10); GLUCOSE 153 MG/DL (70-104); POTASSIUM 4.2 MMOL/L (3.5-5.1); SODIUM 142 MMOL/L (135-145); TOTAL CARBON DIOXIDE 29.8 MMOL/L (24-32); TOTAL PROTEIN 6.5 G/DL (6.4-8.2); eGFR 79 ML/MIN
[2019-04-08] MEDS ORDERED: IRBE150T51 PO (20:42)
[2019-04-08] MEDS ORDERED: cloNIDine 0.1 mg tablet PO ONE (20:45)
[2019-04-08 20:53] VITALS: BP 174/89
== END 2019-04-08 20:55 | disposition home or self-care (01) ==
LOC: ER 18:45
DX: I10 Essential (primary) hypertension (principal); I25.10 Atherosclerotic heart disease of native coronary artery without angina pectoris; Z98.61 Coronary angioplasty status; Z79.899 Other long term (current) drug therapy
CPT/HCPCS: 36415; 71045; 80053; 84484; 85025; 93005; 99284

== ENCOUNTER 2019-10-03 02:02 | Emergency (ER) | payer MEDICARE, BC ==
[~2019-10-03] VITALS: Ht 175.3 cm; Wt 68.1 kg
[~2019-10-03 02:02] MED LIST changes: +MELA3TAB39 PO; -MELA3TAB64 PO
[2019-10-03] MEDS ORDERED: IRBE150T51 PO (02:26)
[2019-10-03] MEDS ORDERED: UBID100C16 PO (02:26)
[2019-10-03] MEDS ORDERED: ATOR40TA PO (02:26)
[2019-10-03] MEDS ORDERED: TICA90TA PO (02:27)
[2019-10-03 03:25] LABS: ALANINE AMINOTRANSFERASE 32 U/L (12-78); ALBUMIN 3.3 G/DL (3.4-5.0); ALBUMIN/GLOBULIN RATIO 1.2 (1.1-1.5); ALKALINE PHOSPHATASE 44 IU/L (46-116); ANION GAP 7 (8-16); ASPARTATE AMINO TRANSFERASE 25 U/L (10-37); BILIRUBIN,TOTAL 0.7 MG/DL (0.1-1.0); BLOOD UREA NITROGEN 22 MG/DL (7-18); BUN/CREATININE RATIO 23.9 (5.4-32.0); CALCIUM 8.5 MG/DL (8.5-10.1); CHLORIDE 107 MMOL/L (99-107); CREATININE 0.92 MG/DL (0.60-1.10); GLUCOSE 94 MG/DL (70-104); POTASSIUM 3.6 MMOL/L (3.5-5.1); SODIUM 142 MMOL/L (135-145); TOTAL CARBON DIOXIDE 28.1 MMOL/L (24-32); TOTAL PROTEIN 6.1 G/DL (6.4-8.2); eGFR 79 ML/MIN
[2019-10-03 03:36] LABS: BASOPHILS # (AUTO) 0.1 X10'3 (0-0.2); BASOPHILS % (AUTO) 1.1 % (0-1); EOSINOPHILS # (AUTO) 0.2 X10'3 (0-0.9); EOSINOPHILS % (AUTO) 4.5 % (0-6); HEMATOCRIT 39.5 % (42.0-52.0); HEMOGLOBIN 13.5 g/dl (14.0-17.9); LYMPHOCYTES # (AUTO) 1.6 X10'3 (1.1-4.8); LYMPHOCYTES % (AUTO) 32.7 % (21-51); MEAN CORPUSCULAR HEMOGLOBIN 30.6 PG (27.0-31.0); MEAN CORPUSCULAR VOLUME 89.9 FL (78-98); MEAN PLATELET VOLUME 8.6 FL (7.4-10.4); MONOCYTES # (AUTO) 0.6 X10'3 (0-0.9); MONOCYTES % (AUTO) 12.7 % (2-12); NEUTROPHILS # (AUTO) 2.4 X10'3 (1.8-7.7); PLATELET COUNT 170 X10'3 (140-440); RED BLOOD COUNT 4.39 X10'6 (4.70-6.10); RED CELL DISTRIBUTION WIDTH 13.9 % (11.5-14.5)
[2019-10-03 07:46] LABS: CLARITY,URINE CLEAR (Clear); COLOR,URINE YELLOW (Yellow); GLUCOSE, URINE NEGATIVE (Neg); KETONES,URINE TRACE mg/dl (Neg); LEUKOCYTE ESTERASE ,URINE NEGATIVE (Neg); NITRITES, URINE NEGATIVE (Neg); OCCULT BLOOD,URINE NEGATIVE (Neg); PH,URINE 5.5 (4.8-8.0); PROTEIN,URINE NEGATIVE (Neg); UROBILINOGEN,URINE 0.2 E.U/dL (0.2-1.0)
[2019-10-03 07:51] LABS: UA COLLECTION TYPE URINAL
[2019-10-03 08:46] VITALS: BP 134/66
== END 2019-10-03 08:50 | disposition home or self-care (01) ==
LOC: ER 02:03
DX: R06.01 Orthopnea (principal); I48.91 Unspecified atrial fibrillation; I25.10 Atherosclerotic heart disease of native coronary artery without angina pectoris; I10 Essential (primary) hypertension; Z98.61 Coronary angioplasty status; Z79.899 Other long term (current) drug therapy
CPT/HCPCS: 36415; 71045; 80053; 81003; 84484; 85025; 93005; 99285

== ENCOUNTER 2019-12-31 11:22 | Observation (INO) | payer MEDICARE, BC ==
[~2019-12-31] VITALS: Ht 167.6 cm; Wt 74.0 kg
[~2019-12-31 11:22] MED LIST changes: -APIX5TAB3 PO; -HCTZ25T PO; +IRBE150T51 PO; -LISI-600 PO; -POTA99TA25 PO
[2019-12-31] MEDS ORDERED: acetaminophen 325mg tablet PO ONE (12:00)
[2019-12-31 12:35] LABS: BASOPHILS % (AUTO) 0.2 % (0-1); EOSINOPHILS # (AUTO) 0.1 X10'3 (0-0.9); EOSINOPHILS % (AUTO) 1.1 % (0-6); HEMOGLOBIN 12.7 g/dl (14.0-17.9); LYMPHOCYTES # (AUTO) 0.2 X10'3 (1.1-4.8); MEAN CORPUSCULAR HGB CONC 34.2 g/dL (33.0-36.5); MEAN CORPUSCULAR VOLUME 90.5 FL (78-98); MEAN PLATELET VOLUME 8.4 FL (7.4-10.4); MONOCYTES # (AUTO) 0.2 X10'3 (0-0.9); MONOCYTES % (AUTO) 2.7 % (2-12); NEUTROPHILS # (AUTO) 7.4 X10'3 (1.8-7.7); PLATELET COUNT 146 X10'3 (140-440); RED BLOOD COUNT 4.08 X10'6 (4.70-6.10); WHITE BLOOD COUNT 7.9 X10'3 (4.5-11.0)
[2019-12-31 12:45] LABS: PARTIAL THROMBOPLASTIN TIME 34 SECONDS (22-32)
[2019-12-31 12:50] LABS: ALANINE AMINOTRANSFERASE 39 U/L (12-78); ALBUMIN 3.4 G/DL (3.4-5.0); ALBUMIN/GLOBULIN RATIO 1.4 (1.1-1.5); ALKALINE PHOSPHATASE 50 IU/L (46-116); ANION GAP 7 (8-16); ASPARTATE AMINO TRANSFERASE 30 U/L (10-37); BILIRUBIN,TOTAL 1.6 MG/DL (0.1-1.0); BLOOD UREA NITROGEN 18 MG/DL (7-18); BUN/CREATININE RATIO 21.4 (5.4-32.0); CALCIUM 8.8 MG/DL (8.5-10.1); CHLORIDE 104 MMOL/L (99-107); CREATININE 0.84 MG/DL (0.60-1.10); GLUCOSE 91 MG/DL (70-104); POTASSIUM 3.6 MMOL/L (3.5-5.1); SODIUM 138 MMOL/L (135-145); TOTAL CARBON DIOXIDE 26.9 MMOL/L (24-32); TOTAL PROTEIN 5.9 G/DL (6.4-8.2); eGFR 87 ML/MIN
[2019-12-31 12:59] LABS: MAGNESIUM 1.9 MG/DL (1.5-2.4)
[2019-12-31 13:30] LABS: CLARITY,URINE CLOUDY (Clear); COLOR,URINE AMBER (Yellow); GLUCOSE, URINE NEGATIVE (Neg); KETONES,URINE 15 mg/dl (Neg); LEUKOCYTE ESTERASE ,URINE SMALL (Neg); NITRITES, URINE NEGATIVE (Neg); OCCULT BLOOD,URINE NEGATIVE (Neg); PROTEIN,URINE 30 mg/dl (Neg)
[2019-12-31 13:34] LABS: UA COLLECTION TYPE CLN CATCH MIDSTREAM
[2019-12-31 13:36] LABS: BACTERIA,URINE 2+ /HPF (Neg); MUCUS STRANDS MANY /LPF (Neg); RBC,URINE 0-2 /HPF (0-2); SQUAMOUS EPITHELIAL CELL,UR FEW /LPF (FEW); WBC CLUMPS,URINE MODERATE /HPF (NEGATIVE); WBC,URINE TNTC /HPF (0-4)
[2019-12-31] MEDS ORDERED: normal saline 1000ML IV soln IVB ONE (13:45)
[2019-12-31] MEDS ORDERED: CefTRIAXone 2gm/D5W 50ml BAG 50 ML IV SCH ×2 (13:58→13:59)
[2019-12-31] MEDS ORDERED: CefTRIAXone 2gm/D5W 50ml BAG 50 ML IV ONE (13:59)
--- NOTE | 2019-12-31 14:22 | NUR ---
DESCISION TO ADMIT. BC DRAWN, ROCEPHIN AND NS BOLUS HUNG, AND RAPID COVID DONE.
--- NOTE | 2019-12-31 14:23 | NUR ---
DR. WRAY AT BEDSIDE
[2019-12-31] MEDS ORDERED: magnesium 4gm in 100ml NS 100 ML IV PRN (14:30)
[2019-12-31] MEDS ORDERED: potassium Cl 20 mEq SR tablet PO PRN ×2 (14:30)
[2019-12-31] MEDS ORDERED: magnesium 2GM in 50ml NS 50 ML IV PRN (14:30)
[2019-12-31] MEDS ORDERED: ondansetron/PF 4mg/2ml inj IV PRN (14:30)
[2019-12-31] MEDS ORDERED: potassium CL 10mEq/100ml bag 100 ML IV PRN ×2 (14:30)
[2019-12-31] MEDS ORDERED: acetaminophen 325mg tablet PO PRN (14:30)
[2019-12-31] MEDS ORDERED: magnesium Cl slow-release 64mg tablet PO PRN (14:30)
[2019-12-31] MEDS ORDERED: APIX5TAB3 PO (15:03)
[2019-12-31] MEDS ORDERED: SOTA80TA10 PO (15:03)
[2019-12-31] MEDS ORDERED: TICA90TA2 PO (15:03)
[2019-12-31] MEDS ORDERED: HYDR25TA4 PO (15:03)
[2019-12-31] MEDS ORDERED: HYDR-3686 PO (15:03)
[2019-12-31] MEDS ORDERED: CHOL200016 PO (15:03)
[2019-12-31] MEDS ORDERED: IRBE75TA8 PO (15:03)
[2019-12-31] MEDS: normal saline 1000ml 1,000 ML IV SCH ×2 (16:07→20:12)
--- NOTE | 2019-12-31 18:50 | NUR ---
SPOKE TO DECLAN FROM SURGICAL FLOOR TO GIVE REPORT ON PT . PER HER NURSE IS BUSY WITH PT SHE WILL CALL US BACK.
[2019-12-31 20:00] VITALS: BP 147/63
[2019-12-31] MEDS: K and/or MAG REPLACEMENT MC SCH (20:00)
[2019-12-31] MEDS ORDERED: Melatonin 3mg tablet PO PRN (23:20)
[2020-01-01] VITALS: BP 120/50
[2020-01-01] MEDS: normal saline 1000ml 1,000 ML IV SCH ×2 (05:47→17:29)
[2020-01-01 06:03] LABS: ALBUMIN 2.5 G/DL (3.4-5.0); ANION GAP 6 (8-16); BLOOD UREA NITROGEN 18 MG/DL (7-18); BUN/CREATININE RATIO 23.7 (5.4-32.0); CALCIUM 7.6 MG/DL (8.5-10.1); CHLORIDE 109 MMOL/L (99-107); CHOL/HDL RATIO 1.9 (0.00-4.99); CHOLESTEROL 77 MG/DL (0-200); CREATININE 0.76 MG/DL (0.60-1.10); GLUCOSE 102 MG/DL (70-104); HDL CHOLESTEROL 41 MG/DL (35-60); LDL CHOLESTEROL 33 MG/DL (50-100); MAGNESIUM 1.7 MG/DL (1.5-2.4); POTASSIUM 3.9 MMOL/L (3.5-5.1); SODIUM 140 MMOL/L (135-145); TOTAL CARBON DIOXIDE 24.8 MMOL/L (24-32); TRIGLYCERIDES 29 MG/DL (20-135); eGFR > 90 ML/MIN
--- NOTE | 2020-01-01 06:05 | NUR ---
Patient in room ASHLEY 344. I have received report from JUAN ANTONIO Cespedes and had the opportunity to ask questions and assume patient care.
[2020-01-01 06:12] LABS: BASOPHILS % (AUTO) 0.3 % (0-1); EOSINOPHILS % (AUTO) 0.6 % (0-6); LYMPHOCYTES # (AUTO) 0.3 X10'3 (1.1-4.8); LYMPHOCYTES % (AUTO) 7.2 % (21-51); MEAN CORPUSCULAR HEMOGLOBIN 31.2 PG (27.0-31.0); MEAN CORPUSCULAR HGB CONC 34.3 g/dL (33.0-36.5); MEAN CORPUSCULAR VOLUME 90.9 FL (78-98); MEAN PLATELET VOLUME 8.2 FL (7.4-10.4); MONOCYTES # (AUTO) 0.5 X10'3 (0-0.9); MONOCYTES % (AUTO) 10.2 % (2-12); NEUTROPHILS # (AUTO) 3.9 X10'3 (1.8-7.7); NEUTROPHILS % (AUTO) 81.7 % (42-75); PLATELET COUNT 117 X10'3 (140-440); RED BLOOD COUNT 3.52 X10'6 (4.70-6.10); RED CELL DISTRIBUTION WIDTH 13.7 % (11.5-14.5); WHITE BLOOD COUNT 4.7 X10'3 (4.5-11.0)
[2020-01-01 06:30] VITALS: BP 115/58
--- NOTE | 2020-01-01 06:32 | NUR ---
Problems reprioritized. Patient report given, questions answered & plan of care reviewed with KASSI RN.
[2020-01-01] MEDS: K and/or MAG REPLACEMENT MC SCH ×2 (07:45→19:08)
[2020-01-01] MEDS ORDERED: CefTRIAXone 2gm/D5W 50ml BAG 50 ML IV SCH (08:00)
[2020-01-01] MEDS: CefTRIAXone/D5W-Rocephin 1gm 50 ML IV SCH (10:23)
[2020-01-01 11:00] VITALS: BP 124/62
[2020-01-01] MEDS: losartan 25mg tablet PO SCH (11:44)
[2020-01-01] MEDS: atorvastatin 20mg tablet PO SCH (11:44)
[2020-01-01] MEDS: vitamin D (cholecalciferol) 1,000 unit tablet PO SCH (11:45)
[2020-01-01 18:00] VITALS: BP 156/64
--- NOTE | 2020-01-01 18:20 | NUR ---
Problems reprioritized. Patient report given, questions answered & plan of care reviewed with JUAN ANTONIO Cespedes.
--- NOTE | 2020-01-01 18:52 | NUR ---
Patient in room ASHLEY 344. I have received report from KASSI IVEY and had the opportunity to ask questions and assume patient care.
[2020-01-01] MEDS: ticagrelor 90mg tablet PO SCH (19:47)
[2020-01-01] MEDS: apixaban 5mg tablet PO SCH (19:47)
[2020-01-01] MEDS: sotalol 80mg tablet PO SCH (19:47)
[2020-01-01] MEDS ORDERED: Melatonin 3mg tablet PO SCH (22:05)
[2020-01-02 00:39] VITALS: BP 166/74
--- NOTE | 2020-01-02 03:34 | NUR ---
Student documentation: I have reviewed and agree with all interventions, assessments performed and documented by MAKEDA STUDENT.
--- NOTE | 2020-01-02 06:10 | NUR ---
Problems reprioritized. Patient report given, questions answered & plan of care reviewed with PRITESH ROMANO.
[2020-01-02 06:35] LABS: ALBUMIN 2.5 G/DL (3.4-5.0); ANION GAP 8 (8-16); BLOOD UREA NITROGEN 12 MG/DL (7-18); BUN/CREATININE RATIO 17.9 (5.4-32.0); CALCIUM 8.2 MG/DL (8.5-10.1); CHLORIDE 109 MMOL/L (99-107); CREATININE 0.67 MG/DL (0.60-1.10); EOSINOPHILS # (AUTO) 0.3 X10'3 (0-0.9); GLUCOSE 92 MG/DL (70-104); HEMATOCRIT 33.1 % (42.0-52.0); HEMOGLOBIN 11.4 g/dl (14.0-17.9); LYMPHOCYTES # (AUTO) 0.7 X10'3 (1.1-4.8); MONOCYTES # (AUTO) 0.7 X10'3 (0-0.9); NEUTROPHILS # (AUTO) 1.6 X10'3 (1.8-7.7); POTASSIUM 3.7 MMOL/L (3.5-5.1); SODIUM 142 MMOL/L (135-145); TOTAL CARBON DIOXIDE 25.2 MMOL/L (24-32); eGFR > 90 ML/MIN
[2020-01-02 06:37] LABS: BASOPHILS % (AUTO) 1.1 % (0-1); EOSINOPHILS % (AUTO) 7.9 % (0-6); LYMPHOCYTES % (AUTO) 20.5 % (21-51); MEAN CORPUSCULAR HEMOGLOBIN 31.2 PG (27.0-31.0); MEAN CORPUSCULAR HGB CONC 34.4 g/dL (33.0-36.5); MEAN CORPUSCULAR VOLUME 90.7 FL (78-98); MEAN PLATELET VOLUME 8.4 FL (7.4-10.4); MONOCYTES % (AUTO) 20.3 % (2-12); NEUTROPHILS % (AUTO) 50.2 % (42-75); PLATELET COUNT 114 X10'3 (140-440); RED BLOOD COUNT 3.66 X10'6 (4.70-6.10); RED CELL DISTRIBUTION WIDTH 13.9 % (11.5-14.5); WHITE BLOOD COUNT 3.2 X10'3 (4.5-11.0)
[2020-01-02 07:00] VITALS: BP 154/67
[2020-01-02] MEDS: CefTRIAXone/D5W-Rocephin 1gm 50 ML IV SCH (07:36)
[2020-01-02] MEDS: sotalol 80mg tablet PO SCH (07:36)
[2020-01-02] MEDS: losartan 25mg tablet PO SCH (07:37)
[2020-01-02] MEDS: vitamin D (cholecalciferol) 1,000 unit tablet PO SCH (07:38)
[2020-01-02] MEDS: apixaban 5mg tablet PO SCH (07:38)
[2020-01-02] MEDS: ticagrelor 90mg tablet PO SCH (07:38)
[2020-01-02] MEDS: atorvastatin 20mg tablet PO SCH (07:38)
[2020-01-02] MEDS: K and/or MAG REPLACEMENT MC SCH (08:00)
[2020-01-02 09:07] LABS: TOTAL CELLS COUNTED 100
[2020-01-02 09:08] LABS: PLATELET ESTIMATE DECREASED; POLYCHROMASIA 1+
[2020-01-02] MEDS ORDERED: AMOX-419 PO (10:29)
[2020-01-02 11:12] VITALS: BP 151/71
--- NOTE | 2020-01-02 14:28 | NUR ---
patient up and about. No c/o pain no fever noted. seen by Dr Encarnacion is for DC. ALl dc instructions given to patient. patient DC home with in private car in stable condition.
== END 2020-01-02 13:00 | disposition home or self-care (01) ==
LOC: ER 11:23 → ED HOLD 14:30 → SUR 3N 20:00
PROVIDERS: ADMIT Internal Medicine; ATTEND Internal Medicine
DX: N39.0 Urinary tract infection, site not specified (principal); Z20.828 Contact with and (suspected) exposure to other viral communicable diseases; R50.9 Fever, unspecified; B96.20 Unspecified Escherichia coli [E. coli] as the cause of diseases classified elsewhere; I48.91 Unspecified atrial fibrillation; E78.5 Hyperlipidemia, unspecified; I10 Essential (primary) hypertension; I25.10 Atherosclerotic heart disease of native coronary artery without angina pectoris; Z98.61 Coronary angioplasty status; Z79.02 Long term (current) use of antithrombotics/antiplatelets; Z79.01 Long term (current) use of anticoagulants; Z79.899 Other long term (current) drug therapy
CPT/HCPCS: 36415; 71045; 80048; 80053; 80061; 81001; 83605; 83735; 83880; 84145; 84484; 85007; 85025; 85610; 85730; 86140; 87040; 87077; 87081; 87088; 87186; 87502; 87503; 87635; 93005; 96361; 96365; 96366; 99285; G0378; J0696; J7030

== ENCOUNTER 2022-10-15 06:05 | Day surgery (SDC) | payer MEDICARE, BC ==
[2022-10-14 11:02] LABS: BASOPHILS # (AUTO) 0.1 X10'3 (0-0.2); BASOPHILS % (AUTO) 1.3 % (0-1); EOSINOPHILS # (AUTO) 0.4 X10'3 (0-0.9); EOSINOPHILS % (AUTO) 6.5 % (0-6); HEMATOCRIT 41.9 % (42.0-52.0); HEMOGLOBIN 14.2 g/dl (14.0-17.9); LYMPHOCYTES # (AUTO) 1.9 X10'3 (1.1-4.8); LYMPHOCYTES % (AUTO) 35.5 % (21-51); MEAN CORPUSCULAR HEMOGLOBIN 30.7 PG (27.0-31.0); MEAN CORPUSCULAR HGB CONC 33.9 g/dL (33.0-36.5); MEAN CORPUSCULAR VOLUME 90.4 FL (78-98); MEAN PLATELET VOLUME 7.6 FL (7.4-10.4); MONOCYTES # (AUTO) 0.8 X10'3 (0-0.9); NEUTROPHILS # (AUTO) 2.3 X10'3 (1.8-7.7); NEUTROPHILS % (AUTO) 42.7 % (42-75); PLATELET COUNT 212 X10'3 (140-440); RED BLOOD COUNT 4.64 X10'6 (4.70-6.10); RED CELL DISTRIBUTION WIDTH 14.3 % (11.5-14.5); WHITE BLOOD COUNT 5.4 X10'3 (4.5-11.0)
[2022-10-14 11:13] LABS: ALBUMIN 3.5 G/DL (3.4-5.0); ANION GAP 7 (8-16); BLOOD UREA NITROGEN 10 MG/DL (7-18); BUN/CREATININE RATIO 12.7 (10.0-20.0); CALCIUM 9.2 MG/DL (8.5-10.1); CHLORIDE 101 MMOL/L (99-107); CREATININE 0.79 MG/DL (0.60-1.10); GLUCOSE 96 MG/DL (70-104); POTASSIUM 4.4 MMOL/L (3.5-5.1); SODIUM 136 MMOL/L (135-145); TOTAL CARBON DIOXIDE 27.6 MMOL/L (24-32); eGFR > 90 ML/MIN
[2022-10-15] VITALS (13 sets, daily range): BP systolic 109–182; BP diastolic 61–84; PULSE 53–60; RESP 11–16; TEMP 97.9; O2SAT 93–98
[~2022-10-15] VITALS: Ht 175.3 cm; Wt 75.8 kg
[~2022-10-15 06:05] MED LIST changes: +APIX5TAB3 PO; +ASPI-611 PO; -CHOL20002 PO; +CHOL200042 PO; +HYDR-3686 PO; +HYDR25TA4 PO; +MECO10005 PO; -MELA3TAB39 PO; +MELA5TAB12 PO; -NIA500ERT PO; +NIAC500C12 PO; +SENN8.6T19 PO; -TICA90TA PO
[2022-10-15] MEDS ORDERED: normal saline 1000ml 1,000 ML IV SCH (06:25)
[2022-10-15] MEDS ORDERED: cefazolin 2gm/D5W 100mL 100 ML IV ONE (06:30)
[2022-10-15] MEDS ORDERED: CHOL20003 PO (06:35)
[2022-10-15] MEDS ORDERED: LIDOcaine 1% 30ml preserv. free vial ONE (07:30)
[2022-10-15] MEDS ORDERED: fentaNYL/PF 50MCG/1 ML 2ML syringe ONE (07:30)
[2022-10-15] MEDS ORDERED: midazolam 1 mg/ML 2ml injection ONE (07:31)
[2022-10-15] MEDS ORDERED: ceFAZolin 1000mg inj ONE (07:31)
[2022-10-15] MEDS ORDERED: LIDOcaine 1% W/epiNEPHrine 1:100,000 20ml vial ONE (07:46)
[2022-10-15] MEDS ORDERED: diltiazem 5mg/ml 5ml inj. IV ONE (09:41)
[2022-10-15] MEDS ORDERED: HYDROcodone/acetaminophen 5mg/325mg tablet PO PRN (10:25)
[2022-10-15] MEDS ORDERED: HYDROcodone/acetaminophen 10/325mg tab PO PRN (10:25)
[2022-10-15] MEDS ORDERED: vancomycin/NS 1 GM ADD-VANTAGE 250 ML IV ONE (11:00)
== END 2022-10-15 16:10 | disposition home or self-care (01) ==
LOC: SSTAY O 06:05
PROVIDERS: ATTEND Internal Medicine Cardiovascular Disease
DX: I49.5 Sick sinus syndrome (principal); I48.0 Paroxysmal atrial fibrillation; I25.10 Atherosclerotic heart disease of native coronary artery without angina pectoris; I11.0 Hypertensive heart disease with heart failure; I50.32 Chronic diastolic (congestive) heart failure; E78.5 Hyperlipidemia, unspecified; I08.0 Rheumatic disorders of both mitral and aortic valves; Z79.01 Long term (current) use of anticoagulants; Z79.899 Other long term (current) drug therapy; Z95.5 Presence of coronary angioplasty implant and graft; Z98.890 Other specified postprocedural states
CPT/HCPCS: 33208; 36415; 71046; 80048; 85025; 85610; 93005; 99152; 99153; C1785; C1898; J0690; J2250; J3010; J3370; J3490; J7030; A4565; A6449

== ENCOUNTER 2024-09-07 07:55 | Outpatient (CLI) | payer MEDICARE, BC ==
[2024-09-07] VITALS (21 sets, daily range): BP systolic 108–188; BP diastolic 69–89; PULSE 60–61
[~2024-09-07 07:55] MED LIST changes: +CARCD120C PO; +CHOL20003 PO; -MECO10005 PO; -NIAC500C12 PO; -UBID100C16 PO
== END 2024-09-07 23:59 | disposition home or self-care (01) ==
LOC: CARD DIAG 07:55
PROVIDERS: ATTEND Internal Medicine Cardiovascular Disease
DX: R42 Dizziness and giddiness (principal)
CPT/HCPCS: 93660